=== PATIENT | female | born 1945 | race Caucasian/White ===

== ENCOUNTER 2017-06-27 07:36 | Inpatient (IN) | payer MEDICARE, MEDICAID ==
[~2017-06-27] VITALS: Ht 152.4 cm; Wt 59.0 kg
[2017-06-27] VITALS (18 sets, daily range): BP systolic 114–175; BP diastolic 54–73; PULSE 40–75; RESP 16–18; TEMP 92.3–97.3; O2SAT 99–100
[~2017-06-27 07:36] MED LIST: 1-ME1LIQ PO; ADVA250A INH; ASAC400T PO; CLOP75; COZA100T PO; FLOV50AE; FLUO20 PO; GLUC500C4 PO; LORTA5 PO; METO100 PO; OMPR20CCR PO; ROYAL JELLY PO; SIMV40TA PO; TOPI100 PO; XYZA5TAB2 PO
--- NOTE | 2017-06-27 08:01 | PD ---
HPI Chief Complaint: intraparenchymal hemorrhage Time Seen by Provider: 07:52 Travel History International Travel<30 days: No Contact w/Intl Traveler<30days: No Traveled to known affect area: No History of Present Illness HPI The patient is a 71-year-old female who was transferred from [facility] for intraparenchymal hemorrhage. According to the paperwork the patient presented to the other hospital after she was found by her , unresponsive , laying face down in the bathroom and a pelvis emesis in urine. The patient had a CT the brain which revealed intraparenchymal hemorrhage with early herniation. The patient was transferred under the care of Dr. Charles, the on- call neurosurgeon, and will be admitted to the intensive surgical care unit. No further information is obtainable from the patient. The history is obtained from records and EMS upon arrival. PFSH Past Medical History Arthritis: Yes Asthma: No Autoimmune Disease: No Blood Disorders: No Anxiety: No Depression: Yes Heart Rhythm Problems: No Cancer: Yes (SKIN) Cardiovascular Problems: Yes High Cholesterol: Yes Chemotherapy: No Chest Pain: No Congestive Heart Failure: No COPD: Yes Cerebrovascular Accident: Yes (2 YEARS AGO) Diabetes: No Endocrine: No GERD: No Genitourinary: Yes Hepatitis: No Hiatal Hernia: No Hypertension: Yes Immune Disorder: No Kidney Stones: No Musculoskeletal: Yes Neurologic: Yes Psychiatric: No Reproductive: No Respiratory: Yes Migraines: No Radiation Therapy: No Renal Failure: Yes (STAGE III) Seizures: Yes Sleep Apnea: Yes (CPAP) Thyroid Disease: No Ulcer: Yes (HX) Past Surgical History Abdominal Surgery: Yes (APPY. CHOLECYSTECTOMY) AICD: No Arteriovenous Shunt: No Body Medical Devices: LEG STENTS Cardiac Surgery: No Ear Surgery: No Endocrine Surgery: No Eye Surgery: No Genitourinary Surgery: No Gynecologic Surgery: Yes (PARTIAL HYST. BILATERAL SALPINGO OPHERECTOMY) Insulin Pump: No Joint Replacement: No Oral Surgery: Yes (TONSILECTOMY) Pacemaker: No Thoracic Surgery: No Social History Alcohol Use: No Tobacco Use: Yes Substance Use: No Allergies-Medications (Allergen,Severity, Reaction): Coded Allergies: prednisone (Unverified Allergy, Intermediate, LOWERS B/P, 06/27/17) Reported Meds & Prescriptions Reported Meds & Active Scripts Active Reported Zetia (Ezetimibe) 10 Mg Tab 10 Mg PO DAILY Levocetirizine 5 Mg Tab 5 Mg PO DAILY Simvastatin 40 Mg Tab 40 Mg PO HS Topiramate 50 Mg Tab 100 Mg PO DAILY Alendronate (Alendronate Sodium) 70 Mg Tab 70 Mg PO Q7D Glucosamine (Glucosamine Sulfate) 1,000 Mg Cap 1,000 Mg PO DAILY Calcium (Calcium Carbonate) 600 Mg Calcium (1500 Mg) Tab 600 Mg PO BID Fish Oil + D3 (Fish Oil-Cholecalciferol) 1,200-1,000 Mg-Unit Cap 1 Cap PO DAILY Hydralazine (Hydralazine HCl) 100 Mg Tab 50 Mg PO BID Take with meals Duloxetine DR (Duloxetine HCl) 60 Mg Capdr 60 Mg PO BID Clopidogrel (Clopidogrel Bisulfate) 75 Mg Tab 75 Mg PO DAILY Ranitidine (Ranitidine HCl) 150 Mg Tab 150 Mg PO BID Aspirin Low Dose (Aspirin) 81 Mg Chew 81 Mg CHEW DAILY Losartan (Losartan Potassium) 100 Mg Tab 100 Mg PO DAILY Dicyclomine (Dicyclomine HCl) 20 Mg Tab 20 Mg PO BID Metoprolol Succinate ER 24 HR (Metoprolol Succinate) 100 Mg Tab 100 Mg PO DAILY Amlodipine (Amlodipine Besylate) 5 Mg Tab 5 Mg PO DAILY Review of Systems ROS Limitations: Clinical Condition, Intubated Except as stated in HPI: all other systems reviewed are Neg Physical Exam Exam Limitations: Clinical Condition Narrative GENERAL: 71-year-old female who presents intubated, nonverbal. SKIN: Focused skin assessment warm/dry. Small area of ecchymosis noted to the upper extremities bilaterally. HEAD: Atraumatic. Normocephalic. EYES: Right pupil is 5 mm and fixed. Left pupil is 2 mm and sluggish. ENT: Endotracheal tube in place. NECK: Trachea midline. No JVD. CARDIOVASCULAR: Regular, bradycardic with a heart rate in the 40s. RESPIRATORY: Bilateral breath sounds via ventilation and endotracheal tube. GASTROINTESTINAL: Abdomen soft, non-tender, nondistended. Pablo catheter in place. Back: Well-healed midline scar. MUSCULOSKELETAL: No obvious deformities. No clubbing. No cyanosis. No edema. NEUROLOGICAL: Eyes closed, nonverbal, intubated. Does extend toes bilaterally to painful stimuli. Reflexes fingers bilateral to painful stimuli. PSYCHIATRIC: Unable to obtain. Data Data Last Documented VS Vital Signs Date Time Temp Pulse Resp B/P (MAP) Pulse Ox O2 Delivery O2 Flow Rate FiO2 06/27/17 07:46 99 60 Orders Orders Nicardipine Inj (Cardene Inj) (06/27/17 08:15) Admit Order (Ed Use Only) (06/27/17 08:02) MDM Medical Decision Making Medical Screen Exam Complete: Yes Emergency Medical Condition: Yes Medical Record Reviewed: Yes Interpretation(s) Labs from [facility] WBC reveals white count 13.0, hemoglobin 11.1, hematocrit 37.1, platelet count 325 PT 11.0, INR 1.05, PTT 31.9 Magnesium 2.2 Troponin 0.031 Alcohol less than 10 UA reveals greater than 300 protein, glucose of 500 Tox positive for THC screen, otherwise negative CT brain performed at [facility] reveals very large approximately 8 x 7 x 3 cm intraparenchymal hemorrhagic collection centered in the right frontal lobe and gangliocapsular region. There is extensive surrounding edema and mass effect with early alcohol herniation at approximate 1 cm leftward midline shift. There is associated intraventricular extension of hemorrhage. Severe acute obstructive hydrocephalus with the associated transependymal edema spread of CSF. EKG reveals sinus bradycardia with a heart rate of 49. Moderate ST depression. QTC 546 ms Differential Diagnosis Differential diagnosis includes intracranial hemorrhage, hypertensive emergency , hypertensive bleed, herniation, trauma, coagulopathy. Narrative Course The patient was an emergent transfer from [facility]. Upon arrival patient was evaluated a call was placed to the on-call neurosurgeon who accepted transfer, Dr. Charles, at 7:54 AM. I discussed the patient with Dr. Esposito who agrees with admission to the intensive surgical care unit. The patient's head of bed was placed at 30. Cardene will be continued with parameters between 140-164 systolic blood pressure. The patient already has a Pablo catheter and a G-tube in place. The patient does not require sedation. The patient will be admitted to the intensive care unit. Critical Care Narrative Aggregate critical care time was 20 minutes. Time to perform other separately billable procedures was not included in the critical care time. My time did not include minutes spent treating any other patients simultaneously or on activities that did not directly contribute to the patient's treatment. The services I provided to this patient were to treat and/or prevent clinically significant deterioration that could result in: Anoxia, hypoxia, herniation, . I provided critical care services requiring my management, as noted below: Chart data review, documentation time, medication orders and management, vital sign assessments/reviewing monitor data, ordering and reviewing lab tests, ordering and interpreting/reviewing x-rays and diagnostic studies, care of the patient and discussion of the patient with the admitting physicians. Physician Communication Physician Communication A call was placed to the on-call neurosurgeon at 7:54 AM. I discussed the patient with Dr. Charles who agrees with admission to the intensive surgical care. Diagnosis Primary Impression: Intraparenchymal hemorrhage of brain Admitting Information Admitting Physician Requests: Admit Condition: Critical Eric Kelley MD Jun 27, 2017 08:01
[2017-06-27] MEDS ORDERED: niCARdipine INJ 25 MG in SODIUM CHLOR 0.9% 250 ML INJ 240 ML IV PRN (08:15)
[2017-06-27] MEDS ORDERED: CHLORHEXIDINE GLUCONATE 2 % 1 PACK (2 CLOTHS) TOP PRN (08:45)
[2017-06-27] MEDS ORDERED: LACTULOSE SYRUP 20 GM/30 ML CUP PO PRN (08:45)
[2017-06-27] MEDS ORDERED: MISCELLANEOUS NURSING INFORMATION XX SCH (08:45)
[2017-06-27] MEDS ORDERED: RESP: ALBUTEROL 2.5 MG/IPRATROPIUM 0.5 MG NEB (PRN) INH (08:45)
[2017-06-27] MEDS ORDERED: BISACODYL 10 MG SUPP RECTAL PRN (08:45)
[2017-06-27] MEDS ORDERED: ONDANSETRON HCL 4 MG/2 ML VIAL IV PUSH PRN (08:45)
[2017-06-27] MEDS ORDERED: ACETAMINOPHEN 325 MG TAB PO PRN (08:45)
[2017-06-27] MEDS ORDERED: SENNOSIDES 8.6 MG TAB PO PRN (08:45)
[2017-06-27] MEDS ORDERED: MAGNESIUM HYDROXIDE SUSP 30 ML CUP PO PRN (08:45)
[2017-06-27] MEDS: DOCUSATE SODIUM 50 MG/SENNA 8.6 MG TAB PO SCH ×2 (09:00→21:00)
[2017-06-27] MEDS: FAMOTIDINE 20 MG/2 ML VIAL IV PUSH SCH ×2 (09:00→20:54)
--- NOTE | 2017-06-27 09:00 | RADRPT ---
EXAM DATE/TIME: 06/27/2017 08:42 [facility] COMPARISON: No previous studies available for comparison. INDICATIONS : Intraparenchymal hemorrhage. RADIATION DOSE: 34.63 CTDIvol (mGy) MEDICAL HISTORY : Stroke. Seizures. Hypertension. SURGICAL HISTORY : None. ENCOUNTER: Initial ACUITY: 1 day PAIN SCALE: Non-responsive LOCATION: Bilateral head TECHNIQUE: Multiple contiguous axial images were obtained of the head. Using automated exposure control and adj ustment of the mA and/or kV according to patient size, radiation dose was kept as low as reasonably a chievable to obtain optimal diagnostic quality images. DICOM format image data is available electro nically for review and comparison. FINDINGS: There is a large intraparenchymal hemorrhage right frontal lobe which extends into the right lat eral horn ventricle measures 7.1 cm in size. Extensive intraventricular hemorrhage is present within the fourth ventricle extending up into the lateral ventricles worse on the right. There is subfalcine herniation from right to left probably on the order of 8 cm. There is mass effect on the perimesence phalic cistern and impending downward herniation may be present. Ventriculomegaly is seen transverse diameter of left lateral horn measures 2 cm. CONCLUSION: Extensive intraparenchymal hemorrhage right frontal lobe and intraventricular hemorrhage with subfalc ine herniation from [id number] and impending downward herniation. Fadi Good MD on June 27, 2017 at 8:55 Board Certified Radiologist. This report was verified electronically.
[2017-06-27] MEDS: NS + KCL 20 MEQ INJ 1,000 ML IV SCH ×2 (09:05→18:15)
[2017-06-27] MEDS: SODIUM CHLOR 0.9% 1000 ML INJ 1,000 ML IV SCH (09:06)
[2017-06-27] MEDS ORDERED: LEVOTAB PO (09:14)
[2017-06-27] MEDS ORDERED: RANI150T PO (09:14)
[2017-06-27] MEDS ORDERED: EZET10 PO (09:14)
[2017-06-27] MEDS ORDERED: FISHCAP4 PO (09:14)
[2017-06-27] MEDS ORDERED: SIMV40TA PO (09:14)
[2017-06-27] MEDS ORDERED: CALC600T5 PO (09:14)
[2017-06-27] MEDS ORDERED: GLUC100013 PO (09:14)
[2017-06-27] MEDS ORDERED: LOSA100T PO (09:14)
[2017-06-27] MEDS ORDERED: ALEN1TAB48 PO (09:14)
[2017-06-27] MEDS ORDERED: HYDR-3801 PO (09:14)
[2017-06-27] MEDS ORDERED: METO1TAB43 PO (09:14)
[2017-06-27] MEDS ORDERED: TOPI50TA7 PO (09:14)
[2017-06-27] MEDS ORDERED: ASPI81CH6 CHEW (09:14)
[2017-06-27] MEDS ORDERED: DULO1CAP3 PO (09:14)
[2017-06-27] MEDS ORDERED: DICY20TA10 PO (09:14)
[2017-06-27] MEDS ORDERED: CLOP75TA PO (09:14)
[2017-06-27] MEDS ORDERED: AMLO5TAB2 PO (09:14)
--- NOTE | 2017-06-27 11:36 | PD.CONS ---
HPI Service Critical Care Medicine Consult Requested By Neurosurgery Service Reason for Consult Critical Care Management Primary Care Physician Unknown History of Present Illness 71 y/o woman transferred from [facility] with massive intracranial hemorrhage. She was fine last night and was then found unresponsive on her floor early this morning. Ventilator dependent now, unresponsive. Pupils are 4 mm, nonreactive. Review of Systems ROS Unobtainable. Past Family Social History Allergies: Coded Allergies: prednisone (Unverified Allergy, Intermediate, LOWERS B/P, 06/27/17) Past Medical History Past Medical History Arthritis: Yes Cancer: Yes (SKIN) Cardiovascular Problems: Yes High Cholesterol: Yes COPD: Yes Cerebrovascular Accident: Yes (2 YEARS AGO) Genitourinary: Yes Hepatitis: No Hiatal Hernia: No Hypertension: Yes Immune Disorder: No Kidney Stones: No Musculoskeletal: Yes Neurologic: Yes Psychiatric: No Reproductive: No Respiratory: Yes Migraines: No Radiation Therapy: No Renal Failure: Yes (STAGE III) Seizures: Yes Sleep Apnea: Yes (CPAP) Thyroid Disease: No Ulcer: Yes (HX) Past Surgical History Abdominal Surgery: Yes (APPY. CHOLECYSTECTOMY) AICD: No Arteriovenous Shunt: No Body Medical Devices: LEG STENTS Gynecologic Surgery: Yes (PARTIAL HYST. BILATERAL SALPINGO OPHERECTOMY) Insulin Pump: No Joint Replacement: No Oral Surgery: Yes (TONSILECTOMY) Pacemaker: No Thoracic Surgery: No Social History Alcohol Use: No Tobacco Use: Yes Substance Use: No Allergies-Medications Allergies-Medications (Allergen,Severity, Reaction): Coded Allergies: prednisone (Unverified Allergy, Intermediate, LOWERS B/P, 06/27/17) Reported Meds & Prescriptions Reported Meds & Active Scripts Active Reported Lortab 5/325 Tab (Hydrocodone-Acetaminophen) 1 Tab Tab 1 Tab PO Q4HPRN Lortab 5/325 Tab (Hydrocodone-Acetaminophen) 1 Tab Tab 1 Tab PO Q4HPRN Prilosec 20 Mg Cap (Omeprazole) 20 Mg Capcr 20 Mg PO DAILY Glucosamine/Chondroitin P (Glucosamine-Chondroitin) 1 Tab Tab 1 Tab PO DAILY Cozaar (Losartan Potassium) 100 Mg Tab 100 Mg PO DAILY Simvastatin 40 Mg Tab 40 Mg PO HS Flovent Rotadisk (Fluticasone Propionate (Inhala) 50 Mcg Aer 50 Mcg NA DIRECTED Xyzal (Levocetirizine) 5 Mg Tab 5 Mg PO DAILY Advair Diskus 250/50 (Salmeterol Xinafoate/Fluticasone) 250 Mcg/50 Mcg Inhp 1 Puff INH BID Prozac 20 Mg Cap (Fluoxetine HCl) 20 Mg Cap 20 Mg PO DAILY Asacol (Mesalamine) 400 Mg Tab 1,200 Mg PO BID Lopressor 100 Mg Tab (Metoprolol Tartrate) 100 Mg Tab 100 Mg PO DAILY Amlodipine Besylate 10 Mg Tab 10 Mg PO DAILY [Brewster Jelly] PO DAILY Plavix (Clopidogrel Bisulfate) 75 Mg Tab Topamax (Topiramate) 100 Mg Tab 100 Mg PO HS Physical Exam Vital Signs Vital Signs Date Time Temp Pulse Resp B/P (MAP) Pulse Ox O2 Delivery O2 Flow Rate FiO2 06/27/17 09:45 100 40 06/27/17 09:16 45 16 146/65 (92) 100 Ventilator 60 06/27/17 09:01 100 40 06/27/17 09:00 100 100 06/27/17 08:50 45 16 175/73 (107) 100 Ventilator 60 06/27/17 08:26 60 06/27/17 08:26 100 60 06/27/17 08:08 92.3 50 18 141/66 (91) 100 Ventilator 60 06/27/17 08:08 49 18 100 Ventilator 60 06/27/17 08:04 92.3 51 18 141/66 (91) 100 06/27/17 07:46 99 60 Physical Exam P 62, SBP 148, r 18, Sats 100%, T 93. Head: Normal, dried blood nares. Neck: Supple, orally intubated. Lungs: Bilateral sonorous rhonchi, good air movement. Heart: NL S1S2, RRR. No JVD. Abdomen: Soft, nondistended, quiet. Extremities: Tepid, well perfused. Neuro: Breathes over vent. Pupils 4 mm, NR. No spontaneous movement. Toes up bilaterally. Laboratory Laboratory Tests Test 06/27/17 09:15 Blood Gas Puncture Site RT RADIAL Blood Gas Patient Temperature 98.6 Blood Gas HCO3 16 Blood Gas Base Excess -7.5 Blood Gas Oxygen Saturation 98 Arterial Blood pH 7.40 Arterial Blood Partial Pressure CO2 27 Arterial Blood Partial Pressure O2 228 Arterial Blood Oxygen Content 14.5 Arterial Blood Carboxyhemoglobin 0.8 Arterial Blood Methemoglobin 0.6 Blood Gas Hemoglobin 10.1 Oxygen Delivery Device VENTILATOR Blood Gas Ventilator Setting PRVC 16/550/5+/0.9IT Blood Gas Inspired Oxygen 40 Assessment and Plan Problem List: (1) Intraparenchymal hemorrhage of brain ICD Code: I61.9 - Nontraumatic intracerebral hemorrhage, unspecified Status: Acute (2) Respiratory failure ICD Code: J96.90 - Respiratory failure, unspecified, unspecified whether with hypoxia or hypercapnia Status: Acute (3) Coma ICD Code: R40.20 - Unspecified coma Status: Acute (4) Hypertensive crisis ICD Code: I16.9 - Hypertensive crisis, unspecified Status: Acute Assessment and Plan Plan: 1. PRVC vent mode. 2. PEEP 5. 3. NG to LIS. 4. Maintain SBP < 140 with cardene infusion. 5. NS iv fluid, no hypotonic fluid. 6. Pablo. 7. Follow renal function closely. 8. Confirm DNR status per POA (son) -> Patient's son who is POA is coming by flight. He wants no heroic measures, no CPR or resuscitative efforts. Overall impression: Patient is critically ill following acute intracranial bleed and evidence of significant immediate brain injury. Prognosis guarded. Critical Care 45 mins aside from procedures Problem Qualifiers (1) Respiratory failure: Qualified Codes: J96.01 - Acute respiratory failure with hypoxia; J96.02 - Acute respiratory failure with hypercapnia (2) Coma: Qualified Codes: R40.2432 - Manav coma scale score 3-8, at arrival to emergency department Palomo Guadarrama MD Jun 27, 2017 11:36
--- NOTE | 2017-06-27 14:33 | EKG ---
Date Performed: 06/27/2017 Time Performed: 07:49:39 PTAGE: 71 years EKG: SINUS BRADYCARDIA MODERATE ST DEPRESSION PROLONGED QT INTERVAL ABNORMAL ECG Compared to PREVIOUS TRACING , QT interval has lengthened. Clinical correlation is required. PREVIOUS TRACIN01/07/2012 12.14 DOCTOR: José Saldaña Interpretating Date/Time 06/27/2017 14:31:38
[2017-06-27] MEDS ORDERED: NOREPINEPHRINE 4 MG/D5W 250 ML IV PRN (15:15)
--- NOTE | 2017-06-27 16:15 | HHI.HP ---
HPI Service Neurosurgery Primary Care Physician Unknown History of Present Illness 71-year-old female who according to her significant other was in good condition at 10 PM last evening, using the computer. He found her lying on the floor in the bathroom today, facedown was some bleeding from the nose. She was unresponsive with small amount of emesis as well as urine surrounding her. No seizure activity reported. Brought emergently to [facility] Emergency room where a CT scan revealed a extremely large approximately 8 cm right frontal lobe and basal ganglia hemorrhage extending towards the midbrain and upper brainstem with approximately 1 cm shift. Patient intubated and transferred to intensive surgical care unit for further evaluation. Review of Systems Unable to obtain review of systems from the patient. According to her significant other she has had no recent medical complaints. Past Family Social History Allergies: Coded Allergies: prednisone (Unverified Allergy, Intermediate, LOWERS B/P, 06/27/17) Past Medical History Past medical history obtained from the patient's significant other. He states she has hypertension, peripheral vascular disease, Crohn's disease Hypercholesterolemia Past Surgical History Lower extremity stent. Lumbar spine surgery Reported Medications Reported Meds & Active Scripts Active Reported Zetia (Ezetimibe) 10 Mg Tab 10 Mg PO DAILY Levocetirizine 5 Mg Tab 5 Mg PO DAILY Simvastatin 40 Mg Tab 40 Mg PO HS Topiramate 50 Mg Tab 100 Mg PO DAILY Alendronate (Alendronate Sodium) 70 Mg Tab 70 Mg PO Q7D Glucosamine (Glucosamine Sulfate) 1,000 Mg Cap 1,000 Mg PO DAILY Calcium (Calcium Carbonate) 600 Mg Calcium (1500 Mg) Tab 600 Mg PO BID Fish Oil + D3 (Fish Oil-Cholecalciferol) 1,200-1,000 Mg-Unit Cap 1 Cap PO DAILY Hydralazine (Hydralazine HCl) 100 Mg Tab 50 Mg PO BID Take with meals Duloxetine DR (Duloxetine HCl) 60 Mg Capdr 60 Mg PO BID Clopidogrel (Clopidogrel Bisulfate) 75 Mg Tab 75 Mg PO DAILY Ranitidine (Ranitidine HCl) 150 Mg Tab 150 Mg PO BID Aspirin Low Dose (Aspirin) 81 Mg Chew 81 Mg CHEW DAILY Losartan (Losartan Potassium) 100 Mg Tab 100 Mg PO DAILY Dicyclomine (Dicyclomine HCl) 20 Mg Tab 20 Mg PO BID Metoprolol Succinate ER 24 HR (Metoprolol Succinate) 100 Mg Tab 100 Mg PO DAILY Amlodipine (Amlodipine Besylate) 5 Mg Tab 5 Mg PO DAILY Family History History of probable intracranial hemorrhage, questionable cerebral aneurysm in patient's sister. Social History Smokes one half pack cigarettes per day No alcohol Physical Exam Vital Signs Vital Signs Date Time Temp Pulse Resp B/P (MAP) Pulse Ox O2 Delivery O2 Flow Rate FiO2 06/27/17 15:37 100 40 06/27/17 12:00 93.9 52 16 155/67 (96) 100 06/27/17 10:00 100 Mechanical Ventilator 40 06/27/17 10:00 93.9 40 16 141/60 (87) 100 06/27/17 09:45 100 40 06/27/17 09:16 45 16 146/65 (92) 100 Ventilator 60 06/27/17 09:01 100 40 06/27/17 09:00 100 100 06/27/17 08:50 45 16 175/73 (107) 100 Ventilator 60 06/27/17 08:26 60 06/27/17 08:26 100 60 06/27/17 08:08 92.3 50 18 141/66 (91) 100 Ventilator 60 06/27/17 08:08 49 18 100 Ventilator 60 06/27/17 08:04 92.3 51 18 141/66 (91) 100 06/27/17 07:46 99 60 Physical Exam GENERAL: Somewhat thin elderly lady, intubated. SKIN: No abrasions, contusion, rash noted. Skin warm and dry. HEAD: Atraumatic. Normocephalic. No temporal or scalp tenderness. EYES: Sclerae are clear and nonicteric ENT: No facial edema or ecchymosis. No periorbital edema. No CSF otorrhea or rhinorrhea. No palpable facial fracture or deformity. NECK: Trachea midline. Cervical collar in place CARDIOVASCULAR: Regular rate and rhythm without murmurs, gallops, or rubs. RESPIRATORY: Intubated. Clear to auscultation. Breath sounds equal bilaterally. No wheezes, rales, or rhonchi. GASTROINTESTINAL: Abdomen soft, nondistended. No hepato-splenomegaly, or palpable masses. No guarding. MUSCULOSKELETAL: Extremities without cyanosis, or edema. No joint edema noted. No calf tenderness. Dorsalis pedis pulses 2+ bilateral NEUROLOGICAL: Intubated. No IV sedation during the exam No eye opening spontaneous to voice or deep pain Does not follow commands Mild corneal response Minimal oculocephalic response No facial grimacing to deep pain Mild cough and gag response Mild flexion upper extremities and withdrawal lower extremities to deep pain Hoffmans response have some bilateral No ankle clonus Plantar responses are neutral Laboratory Laboratory Tests Test 06/27/17 09:15 Blood Gas Puncture Site RT RADIAL Blood Gas Patient Temperature 98.6 Blood Gas HCO3 16 Blood Gas Base Excess -7.5 Blood Gas Oxygen Saturation 98 Arterial Blood pH 7.40 Arterial Blood Partial Pressure CO2 27 Arterial Blood Partial Pressure O2 228 Arterial Blood Oxygen Content 14.5 Arterial Blood Carboxyhemoglobin 0.8 Arterial Blood Methemoglobin 0.6 Blood Gas Hemoglobin 10.1 Oxygen Delivery Device VENTILATOR Blood Gas Ventilator Setting PRVC 16/550/5+/0.9IT Blood Gas Inspired Oxygen 40 Imaging Last Impressions Head CT 06/27/17 0809 Signed Impressions: Service Date/Time: Tuesday, June 27, 2017 08:42 - CONCLUSION: Extensive intraparenchymal hemorrhage right frontal lobe and intraventricular hemorrhage with subfalcine herniation from [id number] and impending downward herniation. Fadi Good MD Laboratory Tests Test 06/27/17 09:15 Blood Gas Puncture Site RT RADIAL Blood Gas Patient Temperature 98.6 Blood Gas HCO3 16 mmol/L Blood Gas Base Excess -7.5 mmol/L Blood Gas Oxygen Saturation 98 % Arterial Blood pH 7.40 Arterial Blood Partial Pressure CO2 27 mmHg Arterial Blood Partial Pressure O2 228 mmHG Arterial Blood Oxygen Content 14.5 Vol % Arterial Blood Carboxyhemoglobin 0.8 % Arterial Blood Methemoglobin 0.6 % Blood Gas Hemoglobin 10.1 G/DL Oxygen Delivery Device VENTILATOR Blood Gas Ventilator Setting PRVC 16/550/5+/0.9IT Blood Gas Inspired Oxygen 40 % Caprini VTE Risk Assessment Caprini VTE Risk Assessment: Mod/High Risk (score >= 2) VTE Pharm Contraindication: Hemorrhage Caprini Risk Assessment Model Point Value = 1 Point Value = 2 Point Value = 3 Point Value = 5 Age 41-60 Minor surgery BMI > 25 kg/m2 Swollen legs Varicose veins or History of unexplained or recurrent spontaneous Oral contraceptives or hormone replacement Sepsis (< 1 month) Serious lung disease, including pneumonia (< 1 month) Abnormal pulmonary function Acute myocardial infarction Congestive heart failure (< 1 month) History of inflammatory bowel disease Medical patient at bed rest Age 61-74 Arthroscopic surgery Major open surgery (> 45 min) Laparoscopic surgery (> 45 min) Malignancy Confined to bed (> 72 hours) Immobilizing plaster cast Central venous access Age >= 75 History of VTE Family history of VTE Factor V Leiden Prothrombin [id number] Lupus anticoagulant Anticardiolipin antibodies Elevated serum homocysteine Heparin-induced thrombocytopenia Other congenital or acquired thrombophilia Stroke (< 1 month) Elective arthroplasty Hip, pelvis, or leg fracture Acute spinal cord injury (< 1 month) Prophylaxis Regimen Total Risk Factor Score Risk Level Prophylaxis Regimen 0-1 Low Early ambulation 2 Moderate Order ONE of the following: *Sequential Compression Device (SCD) *Heparin 5000 units SQ BID 3-4 Higher Order ONE of the following medications: *Heparin 5000 units SQ TID *Enoxaparin/Lovenox 40 mg SQ daily (WT < 150 kg, CrCl > 30 mL/min) *Enoxaparin/Lovenox 30 mg SQ daily (WT < 150 kg, CrCl > 10-29 mL/min) *Enoxaparin/Lovenox 30 mg SQ BID (WT < 150 kg, CrCl > 30 mL/min) AND/OR *Sequential Compression Device (SCD) 5 or more Highest Order ONE of the following medications: *Heparin 5000 units SQ TID (Preferred with Epidurals) *Enoxaparin/Lovenox 40 mg SQ daily (WT < 150 kg, CrCl > 30 mL/min) *Enoxaparin/Lovenox 30 mg SQ daily (WT < 150 kg, CrCl > 10-29 mL/min) *Enoxaparin/Lovenox 30 mg SQ BID (WT < 150 kg, CrCl > 30 mL/min) AND *Sequential Compression Device (SCD) Assessment and Plan Assessment and Plan Impression: 1. Extensive primarily right frontal and deep basal ganglia hemorrhage with significant mass effect. Patient presently with minimal neurologic function on exam, pupils 5-6 mm nonreactive, mild corneal response, minimal flexion of her extremities deep pain. Plan: Findings were discussed with the patient's significant other at bedside. He states that while he is uncertain whether the patient actually has a living will, she has previously discussed what she would want done in a situation where there was a severe medical condition with little hope of meaningful survival. He states that she would not want to have aggressive care in this situation. Her son is on the way to the hospital by commercial air. We will speak with him once he arrives. At this point continuing supportive care and comfort measures only according to the wishes of the significant other who states that the patient's family desires the same. Ez Charles MD Jun 27, 2017 16:15
[2017-06-27] MEDS: CHLORHEXIDINE 0.12% (ORAL KIT) 15 ML CUP MT SCH (20:00)
[2017-06-27] MEDS: niCARdipine INJ 25 MG in SODIUM CHLOR 0.9% 250 ML INJ 240 ML IV PRN (20:55)
[2017-06-27 20:58] LABS: ALBUMIN 2.6 GM/DL (3.4-5.0); AST (GOT) 24 U/L (15-37); BICARBONATE 21.8 MEQ/L (21.0-32.0); BLOOD UREA NITROGEN 27 MG/DL (7-18); CHLORIDE 115 MEQ/L (98-107); CREATININE 1.46 MG/DL (0.50-1.00); GLOMERULAR FILTRATION RATE 35 ML/MIN (>89); GLUCOSE,RANDOM 86 MG/DL (74-106); SODIUM (NA) 145 MEQ/L (136-145)
[2017-06-27 21:02] LABS: ALKALINE PHOSPHATASE 70 U/L (45-117); ALT (GPT) 14 U/L (10-53); TOTAL BILIRUBIN ADULT 0.4 MG/DL (0.2-1.0); TOTAL PROTEIN 6.1 GM/DL (6.4-8.2)
[2017-06-28] VITALS (9 sets, daily range): BP systolic 124–147; BP diastolic 60–69; PULSE 73–98; RESP 16; TEMP 97.9–99; O2SAT 100
[2017-06-28] MEDS ORDERED: CHLORHEXIDINE GLUCONATE 2 % 1 PACK (2 CLOTHS) TOP SCH (04:00)
[2017-06-28] MEDS: NS + KCL 20 MEQ INJ 1,000 ML IV SCH (04:15)
[2017-06-28] MEDS: SODIUM CHLOR 0.9% 1000 ML INJ 1,000 ML IV SCH (05:00)
[2017-06-28 05:10] LABS: CALCIUM 8.1 MG/DL (8.5-10.1); CREATININE 1.59 MG/DL (0.50-1.00)
[2017-06-28 05:11] LABS: INTERNATIONAL NORMALIZED RATIO 1.1 RATIO; PROTHROMBIN TIME - PATIENT 10.9 SEC (9.8-11.6)
[2017-06-28 05:17] LABS: AUTOMATED NEUTROPHIL # 13.9 TH/MM3 (1.8-7.7); BASOPHIL # 0.1 TH/MM3 (0-0.2); BASOPHIL % 0.4 % (0.0-2.0); EOSINOPHIL # 0.1 TH/MM3 (0-0.4); EOSINOPHIL % 0.6 % (0.0-4.0); HEMATOCRIT 31.6 % (35.0-46.0); HEMOGLOBIN 10.3 GM/DL (11.6-15.3); LYMPH % 8.4 % (9.0-44.0); LYMPHOCYTE # 1.4 TH/MM3 (1.0-4.8); MEAN CELL VOLUME 89.9 FL (80.0-100.0); MEAN CORPUSCULAR HEMOGLOBIN 29.2 PG (27.0-34.0); MEAN CORPUSCULAR HGB CONC 32.5 % (32.0-36.0); MEAN PLATELET VOLUME 9.1 FL (7.0-11.0); MONO % 7.9 % (0.0-8.0); MONOCYTE # 1.3 TH/MM3 (0-0.9); NEUT % 82.7 % (16.0-70.0); PLATELET COUNT 219 TH/MM3 (150-450); RED BLOOD COUNT 3.51 MIL/MM3 (4.00-5.30); RED CELL DISTRIBUTION WIDTH 15.3 % (11.6-17.2); WHITE BLOOD COUNT 16.9 TH/MM3 (4.0-11.0)
[2017-06-28] MEDS: niCARdipine INJ 25 MG in SODIUM CHLOR 0.9% 250 ML INJ 240 ML IV PRN (06:20)
[2017-06-28] MEDS: DOCUSATE SODIUM 50 MG/SENNA 8.6 MG TAB PO SCH (09:00)
[2017-06-28] MEDS: FAMOTIDINE 20 MG/2 ML VIAL IV PUSH SCH (09:00)
--- NOTE | 2017-06-28 09:06 | HHI.NSPN ---
History Chief Complaint: Unable to obtain due to patient's clinical condition. Interval History 06/27: 71-year-old female who according to her significant other was in good condition at 10 PM last evening, using the computer. He found her lying on the floor in the bathroom today, facedown was some bleeding from the nose. She was unresponsive with small amount of emesis as well as urine surrounding her. No seizure activity reported. Brought emergently to [facility] Emergency room where a CT scan revealed a extremely large approximately 8 cm right frontal lobe and basal ganglia hemorrhage extending towards the midbrain and upper brainstem with approximately 1 cm shift. Patient intubated and transferred to intensive surgical care unit for further evaluation. 06/28: The patient remains intubated and mechanically ventilated without any sedation. She is not breathing over the vent rate. She had no response to voice or noxious stimulation. System Review Comments Unable to obtain due to patient's clinical condition. Exam Results 06/26/17 06/26/17 06/27/17 06/27/17 06/28/17 06/28/17 06:00 18:00 06:00 18:00 06:00 18:00 Intake Total 900 ml Output Total 300 ml 850 ml Balance 600 ml -850 ml Intake Oral 0 ml IV Total 900 ml Output Urine Total 300 ml 850 ml # Bowel Movements 0 0 Vital Signs Date Time Temp Pulse Resp B/P (MAP) Pulse Ox O2 Delivery O2 Flow Rate FiO2 06/28/17 07:36 100 40 06/28/17 07:00 100 Mechanical Ventilator 40 06/28/17 06:20 88 141/65 06/28/17 06:00 98 06/28/17 06:00 98 150/67 06/28/17 04:09 100 40 06/28/17 04:00 60 06/28/17 04:00 98 06/28/17 04:00 97.9 98 16 147/69 (95) 100 06/28/17 03:38 106 211/95 06/28/17 02:00 74 06/28/17 00:00 60 06/28/17 00:00 99.0 90 16 124/60 (81) 100 06/28/17 00:00 90 06/27/17 23:49 100 40 06/27/17 22:00 72 06/27/17 22:00 72 102/52 06/27/17 21:00 93 219/91 06/27/17 20:55 88 207/87 06/27/17 20:24 100 40 06/27/17 20:00 60 06/27/17 20:00 100 Mechanical Ventilator 40 06/27/17 20:00 97.3 75 16 126/62 (83) 100 06/27/17 20:00 75 06/27/17 18:00 65 06/27/17 16:00 75 06/27/17 16:00 97.1 75 16 114/54 (74) 100 06/27/17 15:37 100 40 06/27/17 15:15 56 86/44 06/27/17 14:00 50 06/27/17 12:00 93.9 52 16 155/67 (96) 100 06/27/17 12:00 52 06/27/17 10:00 100 Mechanical Ventilator 40 06/27/17 10:00 93.9 40 16 141/60 (87) 100 06/27/17 10:00 44 06/27/17 09:45 100 40 06/27/17 09:16 45 16 146/65 (92) 100 Ventilator 60 06/27/17 09:01 100 40 06/27/17 09:00 100 100 06/27/17 08:50 45 16 175/73 (107) 100 Ventilator 60 06/27/17 08:26 60 06/27/17 08:26 100 60 06/27/17 08:08 92.3 50 18 141/66 (91) 100 Ventilator 60 06/27/17 08:08 49 18 100 Ventilator 60 06/27/17 08:04 92.3 51 18 141/66 (91) 100 06/27/17 07:46 99 60 Physical Examination GENERAL: Comatose, no sedation. No evident distress. SKIN: Warm & dry. Scattered ecchymotic areas of indeterminate age to extremities , healing distal RLE wound w/o signs of infection. HEENT: Normocephalic, atraumatic. Pupils 5 mm fixed. No evident otorrhea or rhinorrhea. Orally intubated. OGT. CARDIOVASCULAR: S1S2 w/RRR w/grade II-III murmur LSB, radial & pedal pulses 2+ bilaterally, no pedal edema. Monitor is sinus rhythm w/o any ectopy noted. RESPIRATORY: CTAB w/o W/R/R, equal excursion, intubate, not breathing over vent rate. GASTROINTESTINAL: Abdomen soft, bowel sounds not appreciated. MUSCULOSKELETAL: Extremities w/o any evident clubbing or deformity. NEUROLOGICAL: Comatose, no sedation, GCS 3T. No eye opening to voice or noxious stimulation. Does not follow commands. No corneal reflex. No cough reflex. Unable to assess sensation due to clinical condition. No motor response to local or central noxious stimulation. No Shay's sign bilaterally. No ankle clonus bilaterally. Neutral plantar response bilaterally. Lab, Micro, Other Results Recent Impressions Head CT 06/27/17 0809 Signed Impressions: Service Date/Time: Tuesday, June 27, 2017 08:42 - CONCLUSION: Extensive intraparenchymal hemorrhage right frontal lobe and intraventricular hemorrhage with subfalcine herniation from [id number] and impending downward herniation. Fadi Good MD Laboratory Tests Test 06/27/17 09:15 06/27/17 19:54 06/28/17 04:13 Blood Gas Puncture Site RT RADIAL Blood Gas Patient Temperature 98.6 Blood Gas HCO3 16 mmol/L Blood Gas Base Excess -7.5 mmol/L Blood Gas Oxygen Saturation 98 % Arterial Blood pH 7.40 Arterial Blood Partial Pressure CO2 27 mmHg Arterial Blood Partial Pressure O2 228 mmHG Arterial Blood Oxygen Content 14.5 Vol % Arterial Blood Carboxyhemoglobin 0.8 % Arterial Blood Methemoglobin 0.6 % Blood Gas Hemoglobin 10.1 G/DL Oxygen Delivery Device VENTILATOR Blood Gas Ventilator Setting [facility] 16/550/5+/0.9IT Blood Gas Inspired Oxygen 40 % Blood Urea Nitrogen 27 MG/DL 28 MG/DL Creatinine 1.46 MG/DL 1.59 MG/DL Random Glucose 86 MG/DL 110 MG/DL Total Protein 6.1 GM/DL Albumin 2.6 GM/DL Calcium Level 8.0 MG/DL 8.1 MG/DL Alkaline Phosphatase 70 U/L Aspartate Amino Transf (AST/SGOT) 24 U/L Alanine Aminotransferase (ALT/SGPT) 14 U/L Total Bilirubin 0.4 MG/DL Sodium Level 145 MEQ/L 148 MEQ/L Potassium Level 3.7 MEQ/L 4.3 MEQ/L Chloride Level 115 MEQ/L 122 MEQ/L Carbon Dioxide Level 21.8 MEQ/L 19.0 MEQ/L Anion Gap 8 MEQ/L 7 MEQ/L Estimat Glomerular Filtration Rate 35 ML/MIN 32 ML/MIN White Blood Count 16.9 TH/MM3 Red Blood Count 3.51 MIL/MM3 Hemoglobin 10.3 GM/DL Hematocrit 31.6 % Mean Corpuscular Volume 89.9 FL Mean Corpuscular Hemoglobin 29.2 PG Mean Corpuscular Hemoglobin Concent 32.5 % Red Cell Distribution Width 15.3 % Platelet Count 219 TH/MM3 Mean Platelet Volume 9.1 FL Neutrophils (%) (Auto) 82.7 % Lymphocytes (%) (Auto) 8.4 % Monocytes (%) (Auto) 7.9 % Eosinophils (%) (Auto) 0.6 % Basophils (%) (Auto) 0.4 % Neutrophils # (Auto) 13.9 TH/MM3 Lymphocytes # (Auto) 1.4 TH/MM3 Monocytes # (Auto) 1.3 TH/MM3 Eosinophils # (Auto) 0.1 TH/MM3 Basophils # (Auto) 0.1 TH/MM3 CBC Comment DIFF FINAL Differential Comment Prothrombin Time 10.9 SEC Prothromb Time International Ratio 1.1 RATIO Activated Partial Thromboplast Time 29.9 SEC Medical Decision Making Impression and Plan Impression: 1. Extensive primarily right frontal and deep basal ganglia hemorrhage with significant mass effect. Patient presently with minimal neurologic function on exam, pupils 5-6 mm nonreactive, mild corneal response, minimal flexion of her extremities deep pain. Patient appears to be comatose w/no response to any stimuli. Prognosis is poor. Reviewed labs for today. Leukocytosis w/neutrophilia. Anaemia. INR 1.1. Sodium 148. Interval worsening of renal function. Plan: ISC management per Sales Order Administrator. Continue supportive care and comfort measures. Delbert Zimmerman Jun 28, 2017 09:06
--- NOTE | 2017-06-28 09:27 | HHI.CCPN ---
Subjective Remarks/Hospital Course 71 y/o woman transferred from [facility] with massive intracranial hemorrhage. She was fine last night and was then found unresponsive on her floor early this morning. Ventilator dependent now, unresponsive. Pupils are 4 mm, nonreactive. 06/28: Pupils fixed at 5 mm. Unresponsive. Unstable hemodynamics. Objective Vital Signs Date Time Temp Pulse Resp B/P (MAP) Pulse Ox O2 Delivery O2 Flow Rate FiO2 06/28/17 07:36 100 40 06/28/17 07:00 Mechanical Ventilator 06/28/17 06:20 88 141/65 06/28/17 04:00 97.9 16 Intake and Output 06/28/17 06/28/17 06/29/17 08:00 16:00 00:00 Output Total 850 ml Balance -850 ml Result Diagram: 06/28/1741206/28/17412 Objective Remarks P 64, SBP 122, r 16, Sats 100%, T 95. Head: Normal. Neck: Supple, orally intubated. Lungs: Bilateral sonorous rhonchi, good air movement. No wheezes. Heart: NL S1S2, RRR. No JVD. Abdomen: Soft, nondistended, quiet. No guarding. Extremities: Tepid, well perfused. Neuro: Breathes over vent. Pupils 5 mm, NR. No spontaneous movement. Toes up bilaterally. A/P Problem List: (1) Intraparenchymal hemorrhage of brain ICD Code: I61.9 - Nontraumatic intracerebral hemorrhage, unspecified Status: Acute (2) Respiratory failure ICD Code: J96.90 - Respiratory failure, unspecified, unspecified whether with hypoxia or hypercapnia Status: Acute (3) Coma ICD Code: R40.20 - Unspecified coma Status: Acute (4) Hypertensive crisis ICD Code: I16.9 - Hypertensive crisis, unspecified Status: Acute Assessment and Plan Plan: 1. PRVC vent mode. 2. PEEP 5. 3. NG to LIS. 4. Maintain SBP < 140 with cardene infusion. 5. NS iv fluid, no hypotonic fluid. 6. Pablo. 7. Follow renal function closely. 8. Confirm DNR status per POA (son) -> Patient's son who is POA is coming by flight. He wants no heroic measures, no CPR or resuscitative efforts. Overall impression: Patient is critically ill following acute intracranial bleed and evidence of significant immediate brain injury. Deteriorating neurological status. Prognosis guarded. Critical Care 42 mins aside from procedures Problem Qualifiers (1) Respiratory failure: Qualified Codes: J96.01 - Acute respiratory failure with hypoxia; J96.02 - Acute respiratory failure with hypercapnia (2) Coma: Qualified Codes: R40.2432 - [place] coma scale score 3-8, at arrival to emergency department Palomo Guadarrama MD Jun 28, 2017 09:27
[2017-06-28] MEDS: CHLORHEXIDINE 0.12% (ORAL KIT) 15 ML CUP MT SCH (12:04)
[2017-06-28] MEDS ORDERED: FAMOTIDINE 20 MG/2 ML VIAL IV PUSH SCH (21:00)
--- NOTE | 2017-06-29 10:39 | DEATH SUM ---
Summary Demographics Date Pronounced : Jun 28, 2017 Time Of : 1715 Pronounced By: Tawanna Bradford RN and Kamila Espinosa RN Preliminary Cause of : Other (Massive hemorrhagic stroke) Palomo Guadarrama MD Jun 29, 2017 10:39
--- NOTE | 2017-06-29 10:42 | HHI.DS ---
Discharge Summary Admission Date Jun 27, 2017 at 08:03 Discharge Date: Jun 28, 2017 Admitting Diagnosis intraparenchymal hemorrhage (1) Stroke, hemorrhagic ICD Code: I61.9 - Nontraumatic intracerebral hemorrhage, unspecified Diagnosis: Principal (2) Hypertensive crisis ICD Code: I16.9 - Hypertensive crisis, unspecified Diagnosis: Principal Status: Acute (3) Coma ICD Code: R40.20 - Unspecified coma Diagnosis: Principal Status: Acute (4) Respiratory failure ICD Code: J96.90 - Respiratory failure, unspecified, unspecified whether with hypoxia or hypercapnia Diagnosis: Principal Status: Acute CBC/BMP: 06/28/17 0413 06/28/17 0413 Significant Findings Laboratory Tests Test 06/27/17 09:15 06/27/17 19:54 06/28/17 04:13 Blood Gas HCO3 16 mmol/L (22-26) Blood Gas Base Excess -7.5 mmol/L (-2-2) Arterial Blood Partial Pressure CO2 27 mmHg (38-42) Arterial Blood Partial Pressure O2 228 mmHG (61-120) Blood Gas Hemoglobin 10.1 G/DL (12.0-16.0) Blood Urea Nitrogen 27 MG/DL (7-18) 28 MG/DL (7-18) Creatinine 1.46 MG/DL (0.50-1.00) 1.59 MG/DL (0.50-1.00) Total Protein 6.1 GM/DL (6.4-8.2) Albumin 2.6 GM/DL (3.4-5.0) Calcium Level 8.0 MG/DL (8.5-10.1) 8.1 MG/DL (8.5-10.1) Chloride Level 115 MEQ/L (98-107) 122 MEQ/L (98-107) Estimat Glomerular Filtration Rate 35 ML/MIN (>89) 32 ML/MIN (>89) White Blood Count 16.9 TH/MM3 (4.0-11.0) Red Blood Count 3.51 MIL/MM3 (4.00-5.30) Hemoglobin 10.3 GM/DL (11.6-15.3) Hematocrit 31.6 % (35.0-46.0) Neutrophils (%) (Auto) 82.7 % (16.0-70.0) Lymphocytes (%) (Auto) 8.4 % (9.0-44.0) Neutrophils # (Auto) 13.9 TH/MM3 (1.8-7.7) Monocytes # (Auto) 1.3 TH/MM3 (0-0.9) Random Glucose 110 MG/DL (74-106) Sodium Level 148 MEQ/L (136-145) Carbon Dioxide Level 19.0 MEQ/L (21.0-32.0) Imaging CT Head: Massive parenchymal brain bleed, nontraumatic PE at Discharge Transfer Summary Family elected for withdrawal of artificial support. Decision approved by two physicians due to catastrophic nature of stroke. She at 1715 hours on . Family was at bedside. Hospital Course 71 y/o woman transferred from [facility] with massive intracranial hemorrhage. She was fine last night and was then found unresponsive on her floor early this morning. Ventilator dependent now, unresponsive. Pupils are 4 mm, nonreactive. 06/28: Pupils fixed at 5 mm. Unresponsive. Unstable hemodynamics. Pt Condition on Discharge: Deteriorating Palomo Guadarrama MD Jun 29, 2017 10:42
== END 2017-06-28 17:53 | disposition expired | DRG 64 ==
LOC: NEPC 07:36 → NEDA 08:03 → N03A 09:40
PROVIDERS: ADMIT Neurological Surgery; ATTEND Neurological Surgery
PROC: 5A1945Z Respiratory Ventilation, 24-96 Consecutive Hours (ICD-10-PCS; principal; 2017-06-27)
DX: I61.0 Nontraumatic intracerebral hemorrhage in hemisphere, subcortical (principal); G93.5 Compression of brain; J96.01 Acute respiratory failure with hypoxia; Z51.5 Encounter for palliative care; R40.20 Unspecified coma; G93.6 Cerebral edema; G91.1 Obstructive hydrocephalus; K50.90 Crohn's disease, unspecified, without complications; I16.9 Hypertensive crisis, unspecified; J44.9 Chronic obstructive pulmonary disease, unspecified; I10 Essential (primary) hypertension; G47.30 Sleep apnea, unspecified; I73.9 Peripheral vascular disease, unspecified; E78.00 Pure hypercholesterolemia, unspecified; R40.2432 Glasgow coma scale score 3-8, at arrival to emergency department; D72.829 Elevated white blood cell count, unspecified; D64.9 Anemia, unspecified; M19.90 Unspecified osteoarthritis, unspecified site; F12.90 Cannabis use, unspecified, uncomplicated; F17.210 Nicotine dependence, cigarettes, uncomplicated; F32.9 Major depressive disorder, single episode, unspecified; Z66 Do not resuscitate; Z86.73 Personal history of transient ischemic attack (TIA), and cerebral infarction without residual deficits; Z95.820 Peripheral vascular angioplasty status with implants and grafts
CPT/HCPCS: 36600; 70450; 80048; 80053; 82805; 85025; 85610; 85730; 93005; 94002; 94003; 99285; J3480; J7030; J7050